=== PATIENT | male | born 1965 | race Caucasian/White ===

== ENCOUNTER 2019-08-23 12:45 | Emergency (ER) | payer BC ==
[2019-08-23 13:11] VITALS: BP 134/82; PULSE 78
[2019-08-23] MEDS: cefTRIAXone 1 GM Vial IM ONE (15:03)
--- NOTE | 2019-08-23 16:19 | ER ---
REASON FOR EMERGENCY ROOM VISIT: Cellulitis. HISTORY: This is a 54-year-old man is a recovering alcoholic who has been sober for the past 10 years. He has a history of alcoholic cirrhosis and known varices due to portal hypertension. 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 He has had a number of episodes of cellulitis in the past and he comes in with a 2-day history of mild nausea followed by flu- like symptoms and myalgias, and then noticing increasing redness over his periumbilical area, which he recognized as a probable cellulitis. His symptoms started 2 days ago with his flu-like symptoms. He stayed in bed for most of the initial day and all day yesterday, although yesterday he thought he might feels slightly better. The redness in the periumbilical area was noticed yesterday and seems to have increased in size. He thinks he had a fever, but he did not actually take his temperature. He has had some nausea but no vomiting. He had 1 loose stool this morning. He has had an increase in his usual cough. He does have a history of a chronic cough because he is a smoker. He has had no prior abdominal operations. PAST MEDICAL HISTORY: 1. Cirrhosis secondary to alcohol. 2. Alcoholism, recovering. 3. Portal hypertension secondary to cirrhosis. 4. History of cellulitis in the past. 5. Thrombocytopenia due to portal hypertension or hypersplenism. SOCIAL HISTORY: He is a recovering alcoholic and has abstained from all drugs and alcohol for at least 10 years. He still does drink cigarettes. He works for [employer]. ALLERGIES: NONE. MEDICATIONS: Reviewed. See EMR. REVIEW OF SYSTEMS: Pertinent positives and negatives as listed in the HPI. PHYSICAL EXAMINATION: GENERAL: He is a pleasant man, is in no acute distress. VITAL SIGNS: He is afebrile. Pulse of 78, blood pressure 134/82, respiratory rate is 18, O2 sats 100% on room air. HEENT: Unremarkable. He has no scleral icterus at this time. Oropharynx is normal. NECK: Supple. No adenopathy. CHEST: Clear to auscultation. No wheezes, rhonchi, or rales. CARDIAC: Regular rate without murmur. ABDOMEN: He has approximately an 8 x 8 cm area of periumbilical redness with some evidence of excoriation, presumably from itching and the area of redness is adjacent to the umbilicus and slightly to the left of the midline. The area is minimally tender to palpation, but there is only some mild induration in the skin. No fluctuance or day or mass suggestive of abscess or underlying hernia. The bowel sounds are present. His abdomen is otherwise soft and unremarkable. On exam, I cannot detect any hepatosplenomegaly. EXTREMITIES: Normal pulses. No edema. LABORATORY DATA: CBC shows no leukocytosis and hemoglobin of 14.9. He does have thrombocytopenia with a platelet count of 42,000. This is consistent with readings with thrombocytopenia. He has always had for quite some time. CMP shows that his electrolytes are normal. His creatinine and BUN are normal. His bilirubin is elevated at 2.2, but his AST, ALT, and alkaline phosphatase as well as LDH are all normal. His albumin is 3.2. IMPRESSION: Flu-like illness with cellulitis. PLAN: We will obtain a swab for influenza A and B. If this is positive, his symptoms are only at most 48 hours long, so he might benefit from Tamiflu. Otherwise, we will treat the cellulitis with Rocephin 2 g IM daily x5 days. He will be seen in followup at the end of the week, whereupon a decision can be made as to whether or not he can be switched to something orally or continued with the parenteral Rocephin. This was discussed with the patient. He understands and agrees. All questions were answered. ANDREW /[id number]
[2019-08-23] MEDS: cefTRIAXone 2 GM Vial ONE (17:08)
== END 2019-08-23 15:25 | disposition home or self-care (01) ==
LOC: LB.ED 12:45
DX: L03.316 Cellulitis of umbilicus (principal); F17.210 Nicotine dependence, cigarettes, uncomplicated
CPT/HCPCS: 36415; 80053; 83615; 85025; 87804; 96372; 99283; J0696

== ENCOUNTER 2019-08-25 13:45 | Outpatient (CLI) | payer BC ==
[2019-08-25] MEDS: cefTRIAXone 1 GM Vial IM ONE (14:02)
[2019-08-25 14:19] VITALS: BP 128/70; PULSE 65
== END 2019-08-25 14:15 | disposition home or self-care (01) ==
LOC: LB.ACU 13:45
PROVIDERS: ATTEND Surgery
DX: L03.90 Cellulitis, unspecified (principal)
CPT/HCPCS: 96372; J0696

== ENCOUNTER → 2019-08-26 | Outpatient (CLI) | payer BC ==
[~2019-08-26] MED LIST: cefTRIAXone 2 GM Vial IM ONE; cefTRIAXone 2 GM Vial ONE
[2019-08-26 14:04] VITALS: BP 116/68; PULSE 83
== END ==
LOC: LB.ACU 13:19
PROVIDERS: ATTEND Surgery
DX: L03.90 Cellulitis, unspecified (principal)
CPT/HCPCS: 96372; J0696

== ENCOUNTER 2019-08-27 11:16 | Outpatient (CLI) | payer BC ==
[2019-08-27] MEDS ORDERED: cefTRIAXone 1 GM Vial IM ONE (11:45)
[2019-08-27 12:02] VITALS: BP 134/76; PULSE 80
== END 2019-08-27 11:50 | disposition home or self-care (01) ==
LOC: LB.ACU 11:16
PROVIDERS: ATTEND Surgery
DX: L03.90 Cellulitis, unspecified (principal)
CPT/HCPCS: 96372; J0696

== ENCOUNTER 2020-01-10 18:25 | Emergency (ER) | payer BC ==
[2020-01-10] MEDS ORDERED: Acetaminophen/oxyCODONE 325-5 MG Tab ONE (18:30)
[2020-01-10 19:02] VITALS: BP 155/100; PULSE 84
--- NOTE | 2020-01-10 19:37 | EDM.PDOC ---
ED HPI GENERAL MEDICAL PROBLEM - General Chief Complaint: Upper Extremity Injury/Pain Stated Complaint: fell and hurt right wrist Time Seen by Provider: 01/10/20 18:25 Source of Information: Reports: Patient History Limitations: Reports: No Limitations - History of Present Illness INITIAL COMMENTS - FREE TEXT/NARRATIVE: This patient presents to the ED for evaluation of a wrist injury. He states he fell from a standing height yesterday and thought he probably had sprained his wrist so he didn't come in. Today the wrist has become more swollen and painful. He states he did not hit his head or lose consciousness. He is able to recount all of the details of the incident. He said his shoulder hurt some last night but that has resolved. He denies recent illness including fever, cough, sore throat, nausea, vomiting, or diarrhea. Onset: Sudden Onset Date: 01/09/20 Duration: Getting Worse Location: Reports: Upper Extremity, Right Quality: Reports: Ache, Throbbing Severity: Moderate Improves with: Reports: None Worsens with: Reports: Movement Right Wrist Pain Score (Numeric/FACES): 5 - Related Data Allergies Allergy/AdvReac Type Severity Reaction Status Date / Time No Known Allergies Allergy Verified 01/10/20 18:39 Home Meds: Home Meds NK [No Known Home Meds] 01/10/16 [History] Past Medical History HEENT History: Reports: Sinusitis Gastrointestinal History: Reports: Cirrhosis Psychiatric History: Reports: Anxiety Hematologic History: Reports: Anemia, Blood Transfusion(s) Immunologic History: Reports: Immunosuppression Dermatologic History: Reports: Cellulitis Review of Systems - Review of Systems Review Of Systems: Comprehensive ROS is negative, except as noted in HPI. ED EXAM, GENERAL - Physical Exam Exam: See Below Exam Limited By: No Limitations General Appearance: Alert, WD/WN, No Apparent Distress Eye Exam: Bilateral Eye: PERRL Ears: Normal External Exam Nose: Normal Inspection Throat/Mouth: Normal Inspection Head: Atraumatic, Normocephalic Neck: Normal Inspection Respiratory/Chest: No Respiratory Distress Cardiovascular: Normal Peripheral Pulses Back Exam: Normal Inspection, Full Range of Motion Extremities: Arm Pain, Other (Right wrist and hand very swollen, tender to touch without deformity; distal CMS intact.) ED TRAUMA EXTREMITY PROCEDURES - Splinting Right Upper Extremity Splint Site: right forearm Pre-Procedure NV Status: Normal Post-Procedure NV Status: Normal Splint Material: Fiberglass Splint Design: Volar Applied & Form Fitted By: Provider Provider Post-Splint Application NV Check: NV Status Normal, Good Position Complications: No Course - Vital Signs Last Recorded V/S: Last Vital Signs Temp 36.6 C 01/10/20 18:30 Pulse 84 01/10/20 18:30 Resp 20 01/10/20 18:30 BP 155/100 H 01/10/20 18:30 Pulse Ox - Orders/Labs/Meds Orders: Active Orders 24 hr Category Date Time Status Wrist 2V Rt [CR] Stat Exams 01/10/20 18:31 Taken - Re-Assessments/Exams Free Text/Narrative Re-Assessment/Exam: 01/10/20 19:38 This patient presents for evaluation of wrist pain after a fall. CMS is intact distally in the extremity. X-rays reveal a distal transverse fracture of the radius that does not need reduction at this time. This is a small irregularity to the distal ulna as well. Splint was placed as noted above, and splint and fracture precautions for home. He was instructed to use a sling when he was up and states he has one at home from a previous injury,. He was given a limited number of Percocet tablets for severe pain and supportive care measures were discussed. Close follow up with [facility] is indicated in the next 5 days. The patient was instructed to contact them to schedule an appointment. The patient's exam including remaining upper extremity exam is otherwise normal at this time and no further trauma workup is needed at this time. The patient left with complete understanding and agreement with this plan and no other complaints. Departure - Departure Time of Disposition: 19:20 Disposition: Home, Self-Care 01 Condition: Good Clinical Impression: Fracture of radius, Fracture of radial neck, closed - Discharge Information *PRESCRIPTION DRUG MONITORING PROGRAM REVIEWED*: No Instructions: Oxycodone tablets or capsules, Radial Fracture Forms: ED Department Discharge Care Plan Goals: Call Lisa in am to make an appointment with [facility]. Keep arm elevated, Cold pack over the top. Keep sling on when up. Take oxycodone 1 every 6 hours as needed for painl. Sepsis Event Note - Evaluation Sepsis Screening Result: No Definite Risk - Focused Exam Vital Signs: Vital Signs Temp Pulse Resp BP 01/10/20 18:30 36.6 C 84 20 155/100 H Date Exam was Performed: 01/10/20 Time Exam was Performed: 19:32 - My Orders Last 24 Hours: My Active Orders 01/10/20 18:31 Wrist 2V Rt [CR] Stat - Assessment/Plan Last 24 Hours: My Active Orders 01/10/20 18:31 Wrist 2V Rt [CR] Stat
--- NOTE | 2020-01-10 19:42 | CR ---
DATE OF SERVICE: 01/10/20 CLINICAL DATA: trauma RIGHT WRIST: No priors. There is a mildly impacted, comminuted, intra-articular fracture through the distal radius. There is a minimally displaced fracture through the base of the ulnar styloid. No other acute abnormalities. [id number] [facility]
== END 2020-01-10 19:05 | disposition home or self-care (01) ==
LOC: LB.ED 18:25
DX: S52.571A Other intraarticular fracture of lower end of right radius, initial encounter for closed fracture (principal); W18.30XA Fall on same level, unspecified, initial encounter
CPT/HCPCS: 29125; 73100-RT; 99283; 99283-25; A9270-GY